=== PATIENT | male | born 1945 | race Caucasian/White ===

== ENCOUNTER 2017-11-10 10:17 | Day surgery (SDC) | payer MEDICARE, OTHER ==
[~2017-11-10 10:17] MED LIST: Cyclopentolate 1% Opth Drop 2 ML BOT FS SCH; Fluorouracil 100 MG, Enoxaparin Sodium 25 MG, EPINEPHrine 0.3 MG in Ophthalmic Irrigati... FS SCH; Phenylephrine 2.5% Ophth Soln 5 ML BOT FS SCH
[2017-11-10] MEDS ORDERED: Phenylephrine 2.5% Ophth Soln 5 ML BOT ONE (10:43)
[2017-11-10] MEDS ORDERED: Cyclopentolate 1% Opth Drop 2 ML BOT ONE (10:43)
[2017-11-10] MEDS ORDERED: Fentanyl 100 MCG/2 ML VIAL ONE (12:03)
[2017-11-10] MEDS ORDERED: Bupivacaine 0.75% 10 ML AMP ONE (14:16)
[2017-11-10] MEDS ORDERED: PROPOFOL 200 MG/20 ML VIAL ONE (14:16)
[2017-11-10] MEDS ORDERED: Lidocaine 4% PF 5 ML AMP ONE (14:16)
[2017-11-10] MEDS ORDERED: Dexamethasone 20 MG/5 ML VIAL ONE (14:16)
[2017-11-10] MEDS ORDERED: Maxitrol 0.1% Opth Oint 3.5 GM TUBE ONE (14:16)
[2017-11-10] MEDS ORDERED: PHENYLEPHRINE-NS 100 MCG/ML 10 ML SYRINGE ONE (14:16)
[2017-11-10] MEDS ORDERED: Triamcinolone 40 MG/ML VIAL ONE (14:16)
[2017-11-10] MEDS ORDERED: CEFAZOLIN 1 GM VIAL ONE (14:16)
[2017-11-10] MEDS ORDERED: Lidocaine 1% PF 5 ML VIAL ONE ×2 (14:16)
[2017-11-10] MEDS ORDERED: ePHEDrine/0.9% NaCl/PF SYRINGE 50 mg/10 ml ONE (14:16)
--- NOTE | 2017-11-10 16:16 | OP ---
DATE OF PROCEDURE: 11/10/2017 PREOPERATIVE DIAGNOSIS: Rhegmatogenous and tractional retinal detachment, right eye. POSTOPERATIVE DIAGNOSIS: Rhegmatogenous and tractional retinal detachment, right eye. PROCEDURE: Complex retinal detachment repair, right eye. SURGEON: Dr. Garber. ANESTHESIA: General endotracheal. COMPLICATIONS: The patient was identified in the preoperative holding area. Appropriate consent for the planned surgical procedure on the right eye had been obtained. The patient was transported to [facility] operative suite where appropriate cardiopulmonary monitoring was established. General endotrachea l anesthesia was initiated. The patient was prepped and draped in the usual sterile manner for ophth almic surgery on the right eye. Lid speculum was placed in the right eye. A 360 conjunctival perito my was created using Chevy scissors. A 42 band was encircled in the eye and ligated end-to-end sup erotemporally with 30/83 sleeve. Buckle was fixated to the globe in the oblique quadrants using 5-0 Mersilene suture. Trocars were placed supratemporally, inferotemporally, and supranasally. Infusion line was placed inferotemporally. Light pipe and vitreous cutter were inserted into the eye. Core vitrectomy was performed and the vitreous base was shaved 360 degrees using wide field viewing. Katherine k was found at the 12 o'clock position. Undissectable star fold was identified inferotemporally. Po sterior drain was created inferior to the nerve. Complete air fluid exchange was performed with 10 m inutes being allowed for fluid to drain posteriorly. A 360 laser was placed using Endolaser delivery device. Silicone oil was infused into the eye. Sclerotomy was suture closed with 7-0 Vicryl suture . Conjunctiva was closed with 6-0 plain gut suture. Retrobulbar Kenalog and subconjunctival Ancef w ere placed. Atropine and antibiotic ointment placed, and the eye was patched and shielded. The michelle ent was taken to the postoperative recovery unit in good condition having suffered no immediate perio perative complications. DISCHARGE INSTRUCTIONS: The patient was instructed to keep patch and shield on, avoid lifting or jay ding, position head up or right side down and follow up in the morning with Dr. Garber.
== END 2017-11-10 15:30 | disposition home or self-care (01) ==
LOC: SDC 10:17
PROVIDERS: ATTEND Ophthalmology Retina Specialist
PROC: 08T43ZZ Resection of Right Vitreous, Percutaneous Approach (ICD-10-PCS; principal; 2017-11-10)
DX: H33.011 Retinal detachment with single break, right eye (principal); H33.41 Traction detachment of retina, right eye; Z79.899 Other long term (current) drug therapy
CPT/HCPCS: 67108; C1814; J0171; J0690; J1100; J1650; J2001; J2704; J3010; J3301; J3490; J9190

== ENCOUNTER 2018-03-02 07:05 | Day surgery (SDC) | payer MEDICARE, OTHER ==
[2018-03-01 08:43] VITALS: BMI 22.6
[~2018-03-02 07:05] MED LIST changes: +Fentanyl 100 MCG/2 ML VIAL ONE; +Midazolam HCl 2 mg/2 ml Vial ONE
[2018-03-02] MEDS ORDERED: Cyclopentolate 1% Opth Drop 2 ML BOT ONE (08:13)
[2018-03-02] MEDS ORDERED: Phenylephrine 2.5% Ophth Soln 5 ML BOT ONE (08:13)
--- NOTE | 2018-03-02 11:14 | OP ---
DATE OF PROCEDURE: 03/02/2018 PREOPERATIVE DIAGNOSIS: Vitreous opacification, right eye. POSTOPERATIVE DIAGNOSIS: Vitreous opacification, right eye. PROCEDURE PERFORMED: Pars plana vitrectomy and membrane peel, right eye. ANESTHESIA: Local with monitored anesthesia care. COMPLICATIONS: None. DESCRIPTION OF PROCEDURE: The patient was identified in the preoperative holding area. Appropriate informed consent for the planned surgical procedure on the right eye had been obtained. The patient was transported to the operative suite, where appropriate cardiopulmonary monitoring was established. Local anesthesia was obtained using retrobulbar block modified [place] using 50:50 mixture of 4% lidocaine and 0.75% bupivacaine. The patient was prepped and draped in usual sterile manner for ophthalmic surgery on the right eye. Lid speculum was placed on the right eye. A 25-gauge trocar was placed through the conjunctiva and sclera superotemporally, inferotemporally, and superonasally. Infusion line was placed inferotemporally. Light pipe and vitreous cutter were inserted into the eye. Core vitrectomy was performed. A 20-gauge sclerotomy was created superotemporally. Viscous fluid removal device was inserted into the eye and silicone oil was removed appeared in good condition. Superior temporal and superior nasal sclerotomies were suture closed. Retrobulbar Kenalog and subconjunctival Ancef were placed. Atropine antibiotic ointment was placed and the eye was patched and shielded. The patient was taken to the postoperative recovery unit in good condition, having suffered no immediate perioperative complications. The patient was instructed to keep the patch and shield on, avoid lifting or bending. Follow up in the morning with Dr. Garber. Job ID: [id number]
[2018-03-02] MEDS ORDERED: PROPOFOL 200 MG/20 ML VIAL ONE (16:27)
[2018-03-02] MEDS ORDERED: Bupivacaine 0.75% 10 ML AMP ONE (16:27)
[2018-03-02] MEDS ORDERED: CEFAZOLIN 1 GM VIAL ONE (16:27)
[2018-03-02] MEDS ORDERED: Maxitrol 0.1% Opth Oint 3.5 GM TUBE ONE (16:27)
[2018-03-02] MEDS ORDERED: Lidocaine 4% PF 5 ML AMP ONE (16:27)
[2018-03-02] MEDS ORDERED: Triamcinolone 40 MG/ML VIAL ONE (16:27)
[2018-03-02] MEDS ORDERED: Lidocaine 1% PF 5 ML VIAL ONE (16:27)
== END 2018-03-02 11:10 | disposition home or self-care (01) ==
LOC: SDC 07:05
PROVIDERS: ATTEND Ophthalmology Retina Specialist
PROC: 08T43ZZ Resection of Right Vitreous, Percutaneous Approach (ICD-10-PCS; principal; 2018-03-02)
DX: H43.391 Other vitreous opacities, right eye (principal); Z79.899 Other long term (current) drug therapy; Z98.41 Cataract extraction status, right eye; Z98.42 Cataract extraction status, left eye; Z96.1 Presence of intraocular lens; Z98.890 Other specified postprocedural states
CPT/HCPCS: J0171; J0690; J1650; J2001; J2250; J2704; J3010; J3301; J3490; J9190